=== PATIENT | female | born 1950 | race Caucasian/White ===

== ENCOUNTER 2021-03-27 06:46 | Inpatient (IN) | payer OTHER, MEDICAID ==
[~2021-03-27] VITALS: Ht 157.5 cm; Wt 87.1 kg
[2021-03-27 06:52] VITALS: BP 156/134
[2021-03-27 07:04] LABS: URINE BILIRUBIN NEGATIVE (Negative); URINE BLOOD NEGATIVE (Negative); URINE CLARITY CLEAR; URINE COLOR YELLOW; URINE GLUCOSE-RANDOM NEGATIVE (Negative); URINE KETONES NEGATIVE (Negative); URINE LEUKOCYTES-REFLEX NEGATIVE (Negative); URINE NITRITE-REFLEX NEGATIVE (Negative); URINE PROTEIN NEGATIVE (Negative); URINE UROBILINOGEN 0.2 E.U./dl (0.2-1.0)
[2021-03-27] MEDS ORDERED: CARVEDILOL12.5 MG PO (07:09)
[2021-03-27] MEDS ORDERED: ASA81BEC PO (07:10)
[2021-03-27] MEDS ORDERED: APPLE CIDER VI1 EAC1 PO (07:10)
[2021-03-27] MEDS ORDERED: LIPITOR40 MG PO (07:10)
[2021-03-27] MEDS ORDERED: GABAPENTIN600 M1 PO (07:11)
[2021-03-27] MEDS ORDERED: FLOVENT DISKU100 MCG INH (07:11)
[2021-03-27] MEDS ORDERED: HYDROCODON-ACE1 EAC7 PO (07:11)
[2021-03-27] MEDS ORDERED: JANUMET XR 50-1 EACH PO (07:13)
[2021-03-27] MEDS ORDERED: MAG-OX PO (07:13)
[2021-03-27] MEDS ORDERED: DESYREL150 MG PO (07:14)
[2021-03-27] MEDS ORDERED: SINGULAIR 10 MG10 MG PO (07:14)
[2021-03-27] MEDS ORDERED: PROTONIX40 M4 PO (07:14)
[2021-03-27] MEDS ORDERED: VIT B12 PO (07:15)
[2021-03-27] MEDS ORDERED: VITAMIN C PO (07:15)
[2021-03-27] MEDS ORDERED: VITAMIN D3 PO (07:16)
[2021-03-27] MEDS ORDERED: PROAIR HFA8.5 GM INH (07:17)
[2021-03-27] MEDS ORDERED: ZINC PO (07:17)
[2021-03-27] MEDS ORDERED: FISH OIL 1,0001 EAC9 PO (07:18)
[2021-03-27 07:20] LABS: HEMATOCRIT 41.1 % (37.0-47.0); HEMOGLOBIN 13.6 gm/dL (12.0-15.0); MCH 28.7 pg (26.0-34.0); MCHC 33.2 g/dL (28.0-37.0); MCV 86.6 fL (80.0-100.0); MPV 7.5 fl. (7.2-11.1); NUCLEATED RBCS 0 /100WBC; PLATELET COUNT* 288 thou/uL (150-400); RBC 4.74 mil/uL (4.20-5.00); RDW-CV 13.7 % (10.5-14.5); WBC 10.9 thou/uL (4.0-11.0)
[2021-03-27 07:25] LABS: CALCIUM 8.9 mg/dL (8.5-10.1); CREATININE 0.7 mg/dL (0.6-1.3); POTASSIUM 4.2 mmol/L (3.5-5.1)
[2021-03-27 07:31] LABS: INR 0.9; PROTIME 10.1 Seconds (9.20-11.50)
[2021-03-27 07:36] LABS: ALBUMIN 3.7 g/dL (3.4-5.0); MAGNESIUM 1.5 mg/dL (1.8-2.4); TOTAL BILIRUBIN 0.3 mg/dL (<0.1-1.0); TOTAL PROTEIN 7.3 g/dL (6.4-8.2)
[2021-03-27 08:04] LABS: ABSOLUTE LYMPHOCYTES 0.8 thou/uL (0.8-5.3); ABSOLUTE MONOCYTES 0.2 thou/uL (0.0-1.2); ABSOLUTE NEUTROPHILS 9.9 thou/uL (1.6-8.1); PLATELET ESTIMATE ADEQUATE
[2021-03-27] MEDS ORDERED: PREDNISONE 20 M20 M1 PO (08:07)
--- NOTE | 2021-03-27 09:40 | EKG ---
[place] [address] ELECTROCARDIOGRAM REPORT Name: CARMELITA DEJESUS Room: [place] [address] [facility]#: [id number] Admission: 03/27/21 Attend Phys: Mar Dutta, Discharge: Date of : 52 Date of Service: 03/27/21 0654 Report #: [id number] THIS REPORT FOR: //name// [facility] ED Test Date: 2021-03-27 Test Time: 06:54:40 Pat Name: CARMELITA DEJESUS Department: Room: [facility] Gender: F Painting Technician: MARGI : 1950 Requested By: Galina Gray Order Number: [id number] MD: Nacho Ryder Measurements Intervals [place] Rate: 110 P: 42 IN: 172 QRS: -48 QRSD: 96 T: 31 QT: 320 QTc: 433 Interpretive Statements Sinus tachycardia Left anterior fascicular block Abnormal R-wave progression, late transition artifact noted No previous ECG available for comparison Electronically Signed On 03-27-2021 9:40:37 CDT by Nacho Ryder [email or web address] <ELECTRONICALLY SIGNED> By: Nacho Ryder MD, [facility] 03/27/21 0940 [id number] Nacho Ryder MD, [facility] /EPI
[2021-03-27 11:03] VITALS: BP 106/62
[2021-03-27 11:15] VITALS: BP 121/67
[2021-03-27 17:26] VITALS: BP 108/65
[2021-03-27 20:54] VITALS: BP 127/62
[2021-03-28 01:12] VITALS: BP 120/65
[2021-03-28 04:33] VITALS: BP 113/61
[2021-03-28 06:02] LABS: HEMATOCRIT 34.7 % (37.0-47.0); MCH 27.8 pg (26.0-34.0); MCHC 32.3 g/dL (28.0-37.0); MCV 85.9 fL (80.0-100.0); MPV 8.5 fl. (7.2-11.1); RBC 4.04 mil/uL (4.20-5.00); RDW-CV 13.6 % (10.5-14.5); WBC 21.9 thou/uL (4.0-11.0)
[2021-03-28 06:20] LABS: HEMOGLOBIN 11.2 gm/dL (12.0-15.0)
[2021-03-28 06:21] LABS: CALCIUM 8.7 mg/dL (8.5-10.1); CREATININE 0.5 mg/dL (0.6-1.3); POTASSIUM 3.6 mmol/L (3.5-5.1)
[2021-03-28 08:00] VITALS: BP 102/59; BP 120/70
[2021-03-28] MEDS ORDERED: PREDNISONE 10 M10 M1 PO (08:22)
[2021-03-28] MEDS ORDERED: LEVOFLOXACIN500 MG PO (08:22)
[2021-03-28 11:35] VITALS: BP 120/70
[2021-03-28 13:58] VITALS: BP 118/66
== END 2021-03-28 13:32 | disposition home or self-care (01) | DRG 177 ==
LOC: M.ERS 06:46 → M.TBA-ER 09:18 → M.2W 09:18
PROVIDERS: Emergency Medicine; ADMIT Internal Medicine; ATTEND Internal Medicine
DX: J15.6 Pneumonia due to other Gram-negative bacteria (principal); J96.01 Acute respiratory failure with hypoxia; I25.10 Atherosclerotic heart disease of native coronary artery without angina pectoris; F41.9 Anxiety disorder, unspecified; I48.91 Unspecified atrial fibrillation; G89.29 Other chronic pain; M54.9 Dorsalgia, unspecified; Z20.822 Contact with and (suspected) exposure to COVID-19; I25.2 Old myocardial infarction; Z79.82 Long term (current) use of aspirin; Z79.899 Other long term (current) drug therapy

== ENCOUNTER → 2021-05-04 | Outpatient (CLI) | payer OTHER, MEDICAID ==
[~2021-05-04] MED LIST: APPLE CIDER VI1 EAC1 PO; ASA81BEC PO; CARVEDILOL12.5 MG PO; DESYREL150 MG PO; FISH OIL 1,0001 EAC9 PO; FLOVENT DISKU100 MCG INH; GABAPENTIN600 M1 PO; HYDROCODON-ACE1 EAC7 PO; JANUMET XR 50-1 EACH PO; LEVOFLOXACIN500 MG PO; LIPITOR40 MG PO; MAG-OX PO; PREDNISONE 10 M10 M1 PO; PREDNISONE 20 M20 M1 PO; PROAIR HFA8.5 GM INH; PROTONIX40 M4 PO; SINGULAIR 10 MG10 MG PO; VIT B12 PO; VITAMIN C PO; VITAMIN D3 PO; ZINC PO
== END ==
LOC: M.RAD 12:24
PROVIDERS: ATTEND Family Medicine
DX: J18.9 Pneumonia, unspecified organism (principal)

== ENCOUNTER 2021-06-30 18:32 | Emergency (ER) | payer OTHER, MEDICAID ==
[~2021-06-30] VITALS: Ht 149.9 cm; Wt 86.6 kg
[2021-06-30 20:32] LABS: ABSOLUTE BASOPHILS 0.1 thou/uL (0.0-0.2); ABSOLUTE EOSINOPHILS 0.1 thou/uL (0.0-0.7); ABSOLUTE LYMPHOCYTES 2.4 thou/uL (0.8-5.3); ABSOLUTE MONOCYTES 0.8 thou/uL (0.0-1.2); ABSOLUTE NEUTROPHILS 3.5 thou/uL (1.6-8.1); BASOPHILS 1.2 %; EOSINOPHILS 0.9 %; HEMATOCRIT 37.6 % (37.0-47.0); HEMOGLOBIN 12.3 gm/dL (12.0-15.0); LYMPHOCYTES 34.8 %; MCHC 32.7 g/dL (28.0-37.0); MCV 85.5 fL (80.0-100.0); MONOCYTES 11.2 %; MPV 7.2 fl. (7.2-11.1); NUCLEATED RBCS 0 /100WBC; PLATELET COUNT* 366 thou/uL (150-400); POLYS 51.9 %; WBC 6.8 thou/uL (4.0-11.0)
[2021-06-30 20:33] LABS: CALCIUM 9.4 mg/dL (8.5-10.1); CREATININE 0.6 mg/dL (0.6-1.3); POTASSIUM 3.8 mmol/L (3.5-5.1)
[2021-06-30 20:37] LABS: ALBUMIN 3.8 g/dL (3.4-5.0); TOTAL BILIRUBIN 0.2 mg/dL (<0.1-1.0); TOTAL PROTEIN 7.4 g/dL (6.4-8.2)
[2021-06-30 21:59] VITALS: BP 142/90
== END 2021-06-30 21:59 | disposition home or self-care (01) ==
LOC: M.ERS 18:32
PROVIDERS: Nurse Practitioner Family
DX: H11.32 Conjunctival hemorrhage, left eye (principal); D32.9 Benign neoplasm of meninges, unspecified; I48.91 Unspecified atrial fibrillation; I25.2 Old myocardial infarction; Z79.899 Other long term (current) drug therapy; Z79.82 Long term (current) use of aspirin; Z79.891 Long term (current) use of opiate analgesic; Z79.51 Long term (current) use of inhaled steroids